=== PATIENT | male | born 1955 | race Caucasian/White ===

== ENCOUNTER 2017-07-15 09:40 | Inpatient (IN) ==
[2017-07-15] MEDS ORDERED: Ondansetron 4 MG/2 ML VIAL IVP ONE (10:19)
[2017-07-15] MEDS ORDERED: Pantoprazole 80 MG in 0.9 % Sodium Chloride 50 ML IVPB ONE (10:19)
[2017-07-15] MEDS ORDERED: 0.9 % Sodium Chloride 1,000 ML IVC ONE ×3 (10:19→14:25)
[2017-07-15] MEDS ORDERED: *HR* Morphine 2 MG/ML SYRINGE IVP ONE (10:25)
[2017-07-15 10:59] LABS: Basophils % 0.4 %; Eosinophils % 0.3 %; Hematocrit 42.5 % (37.5-50.1); Hemoglobin 14.4 g/dL (12.9-16.9); Immature Granulocytes % 0.2 % (0-4); Lymphocytes # 2.1 K/mcL (0.6-4.6); Mean Corpuscular HGB Conc 33.9 g/dL (31.6-35.5); Mean Corpuscular Hemoglobin 29.3 pg (28.0-33.3); Mean Corpuscular Volume 86.4 fL (83.0-100.0); Mean Platelet Volume 10.5 fL (9.4-12.4); Monocytes # 0.8 K/mcL (0.0-1.3); Monocytes % 8.6 %; Neutrophils # 6.5 K/mcL (1.6-8.9); Platelet Count 262 K/mcL (140-400); Red Blood Count 4.92 M/mcL (4.19-5.50); Segmented Neutrophils % 68.5 %
[2017-07-15 11:03] LABS: INR 1.1; Prothrombin Time 12.4 Seconds (9.4-12.1)
[2017-07-15 11:05] LABS: Activated Partial Thrombo Time 31.7 Seconds (26.0-36.0)
[2017-07-15 11:11] LABS: Alanine Aminotransferase 45 Units/L (0-55); Albumin/Globulin Ratio 0.9 (1.1-2.2); Alkaline Phosphatase 66 Units/L (38-126); Aspartate Amino Transferase 35 Units/L (5-34); BUN/Creatinine Ratio 43 (6-26); Blood Urea Nitrogen 41 mg/dL (8-26); Calcium 8.7 mg/dL (8.6-10.8); Carbon Dioxide 21 mEq/L (19-29); Chloride 106 mEq/L (98-109); Globulin 3.4 g/dL (2.4-3.5); Glucose 117 mg/dL (70-99); Magnesium 1.2 mg/dL (1.6-2.6); Osmolality,Calculated 299 (280-300); Potassium 4.3 mEq/L (3.5-4.5); Sodium 139 mEq/L (136-145); Total Protein 6.4 g/dL (6.0-8.3); eGFR For African Americans > 60 (> 60); eGFR For Non-African Americans > 60 (> 60)
--- NOTE | 2017-07-15 12:37 | Emergency Department Note ---
Disposition Clinical Impression: Lower gastrointestinal hemorrhage, Elevated troponin, Hematochezia Disposition: Admitted As Inpatient Condition: Fair Referrals: Brody Steel DO [Primary Care Provider] - Forms: ED Satisfaction Letter Time of Disposition: 12:44 GI Bleed HPI - General Chief complaint: ED GI Bleed Stated complaint: blood in stool Time Seen by Provider: 07/15/17 09:44 Source: patient, EMS Mode of arrival: ambulatory Limitations: no limitations Nursing Notes Reviewed: Yes Vital Signs Reviewed: Yes - History of Present Illness HPI Narrative: Patient is a 62-year-old male with a past medical history of hypertension that presents to the ED with chief complaint rectal bleeding and vomiting blood. Pt this morning he go up around 1 AM he got up to use the bathroom and noticed his stool was dark. He states he did not think much about it and went back to bed. States he then got up this morning and he felt like his stomach was bloated. Patient then went to the bathroom and had bright red diarrhea. Patient then goes on to state he became very nauseated and started vomiting dark black blood. He denies any chest pain, shortness of breath, abdominal pain, back pain , urinary symptoms or weakness. Does report he has a little lightheaded. Patient is not on any blood thinners. He denies any use of NSAIDs or alcohol. Does report recent fall, states mechanical fall (tripped) while hunting yesterday but didn't land on his stomach. 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 Denies: abdominal pain, epistaxis, fever, chills, headaches, loss of appetite, malaise, easy bruising, rash, other bleeding source, shortness of breath, syncope/near-syncope, weakness Treatments Prior to Arrival: none - Related Data Home Medications Medication Instructions Recorded Confirmed Aspirin [Lo-Dose Aspirin EC] 81 mg PO DAILY 07/15/17 07/15/17 Atorvastatin [Lipitor] 40 mg PO HS 07/15/17 07/15/17 Carvedilol [Coreg] 6.25 mg PO BID 07/15/17 07/15/17 Oxycodone HCl/Acetaminophen 1 tab PO QID 07/15/17 07/15/17 [Percocet 10-325 mg Tablet] hydroCHLOROthiazide 50 mg PO DAILY 07/15/17 07/15/17 [Hydrochlorothiazide] Allergies Allergy/AdvReac Type Severity Reaction Status Date / Time No Known Allergies Allergy Verified 07/15/17 12:15 All systems ED: reviewed and negative except as stated. Review of Systems: As Per HPI Constitutional: Denies: fever, chills, weakness Eyes: Denies: eye discharge ENT ED: Denies: ear pain, throat pain, dental pain, congestion Cardiovascular: Denies: chest pain, palpitations, dyspnea on exertion Respiratory: Denies: cough, dyspnea, wheezes, hemoptysis, stridor, sputum production Gastrointestinal: Reports: nausea, vomiting, hematemesis, hematochezia. Denies : abdominal pain Genitourinary: Denies: urgency, dysuria, frequency, hematuria Musculoskeletal: Denies: back pain, neck pain Integumentary: Denies: rash Neurological: Denies: weakness, numbness, paresthesias Past Medical History - Past Medical History Source: patient Medical history: Reports: hypertension Psychiatric history: Reports: no psych history - Social History Smoking Status: Former smoker Smokeless Tobacco Status: No Alcohol use: Reports: occasionally Drug use: Reports: none Physical Exam - General Limitations: no limitations General appearance: alert, in no apparent distress - Head Head exam: atraumatic, normocephalic, normal inspection - Eye Eye exam: Present: normal appearance, PERRL, EOMI - ENT ENT exam: normal exam, normal oropharynx, mucous membranes moist - Neck Neck exam: Present: normal inspection, full ROM, trachea midline - Chest Chest inspection: Present: symmetric chest wall rise - Respiratory Respiratory exam: Present: normal lung sounds bilaterally - Cardiovascular Cardiovascular exam: Present: regular rate, normal rhythm, normal heart sounds - Abdominal Exam Abdominal exam: Present: soft, Non-Tender. Absent: tenderness, distention, guarding, rebound, rigidity - Rectal Exam Rectal exam: Present: normal inspection, normal rectal tone, heme (+) stool, bloody stool - Extremities Exam Extremities exam: Present: normal inspection, full ROM. Absent: pedal edema - Back Exam Back exam: Present: normal inspection, full ROM. Absent: tenderness, CVA tenderness (R), CVA tenderness (L) - Neurological Exam Neurological exam: Present: alert, oriented X3 - Psychiatric Psychiatric exam: Present: normal affect, normal mood - Skin Skin exam: Present: warm, dry, intact, normal color. Absent: rash, cyanosis, diaphoresis Course Course Narrative: Patient is a 62-year-old male with a past medical history of hypertension that presents to the ED with chief complaint rectal bleeding and vomiting blood. Pt this morning he go up around 1 AM he got up to use the bathroom and noticed his stool was dark. He states he did not think much about it and went back to bed. States he then got up this morning and he felt like his stomach was bloated. Patient then went to the bathroom and had bright red diarrhea. Patient then goes on to state he became very nauseated and started vomiting dark black blood. He denies any chest pain, shortness of breath, abdominal pain, back pain , urinary symptoms or weakness. Does report he has a little lightheaded. Patient is not on any blood thinners. He denies any use of NSAIDs or alcohol. Does report recent fall, states mechanical fall (tripped) while hunting yesterday but didn't land on his stomach. 2 IVs placed. We will obtain labs and CT at this time. IV fluids started. Protonix given. Hemoglobin 14.4 BUN 40, mag 1.7, total bili 2, AST 35, troponin 0.04. Positive Hemoccult chest X-ray shows no acute cardiopulmonary abnormalities. CT: 1. No acute abnormality in the abdomen/pelvis. 2. Punctate nonobstructing right renal calculus. 3. Diverticulosis. 4. Diffuse bladder wall thickening either secondary to chronic bladder outlet obstruction versus sequelae of cystitis. Plan to admit. Endoscopy paged. Endoscopy never called back. Hospitalist paged. Discussed case with Dr. Bhatia. He accepted pt. No other request at this time. Dr. Alcantar had [id number] time with patient and agrees with my assessment and treatment plan. Vital Signs Temperature 98.0 F 07/15/17 09:43 Pulse Rate 126 07/15/17 09:43 Respiratory Rate 18 07/15/17 09:43 Blood Pressure 115/72 07/15/17 09:43 O2 Sat by Pulse Oximetry 95 07/15/17 09:43 Temperature 98.0 F 07/15/17 09:43 Pulse Rate 102 07/15/17 13:23 Respiratory Rate 22 07/15/17 13:23 Blood Pressure 104/80 07/15/17 13:23 O2 Sat by Pulse Oximetry 94 07/15/17 13:23 Oxygen Delivery Oxygen Delivery Room Air GI Bleed - Medical Records Medical records reviewed: Yes I reviewed the patient's medical records. - Lab Data Lab results reviewed: Yes I reviewed the patient's lab results. Result diagrams: 07/15/17 10:47 07/15/17 10:47 Lab Results 07/15/17 07/15/17 07/15/17 Range/Units 10:47 10:47 10:47 WBC 9.5 (4.3-11.1) K/mcL RBC 4.92 (4.19-5.50) M/mcL Hgb 14.4 (12.9-16.9) g/dL Hct 42.5 (37.5-50.1) % MCV 86.4 (83.0-100.0) fL MCH 29.3 (28.0-33.3) pg MCHC 33.9 (31.6-35.5) g/dL RDW 13.0 (11.5-14.5) % Plt Count 262 (140-400) K/mcL MPV 10.5 (9.4-12.4) fL Immature Gran % 0.2 (0-4) % Seg Neutrophils % 68.5 % Lymphocytes % 22.0 % Monocytes % 8.6 % Eosinophils % 0.3 % Basophils % 0.4 % Neutrophils # 6.5 (1.6-8.9) K/mcL Lymphocytes # 2.1 (0.6-4.6) K/mcL Monocytes # 0.8 (0.0-1.3) K/mcL Eosinophils # 0.0 (0.0-0.6) K/mcL Basophils # 0.0 (0.0-0.2) K/mcL PT 12.4 H (9.4-12.1) Seconds INR 1.1 APTT 31.7 (26.0-36.0) Seconds Sodium (136-145) mEq/L Potassium (3.5-4.5) mEq/L Chloride (98-109) mEq/L Carbon Dioxide (19-29) mEq/L BUN (8-26) mg/dL Creatinine (0.72-1.25) mg/dL Est GFR ( Amer) (> 60) Est GFR (Non-Af Amer) (> 60) BUN/Creatinine Ratio (6-26) Glucose (70-99) mg/dL Calculated Osmolality (280-300) Lactic Acid (0.5-2.2) mmol/L Calcium (8.6-10.8) mg/dL Magnesium (1.6-2.6) mg/dL Total Bilirubin (0.2-1.2) mg/dL AST (5-34) Units/L ALT (0-55) Units/L Alkaline Phosphatase (38-126) Units/L Troponin I (0-0.03) ng/mL Serum Total Protein (6.0-8.3) g/dL Albumin (3.5-5.0) g/dL Globulin (2.4-3.5) g/dL Albumin/Globulin Ratio (1.1-2.2) Stool Occult Blood (Negative) Blood Type O POSITIVE Antibody Screen NEGATIVE 07/15/17 07/15/17 07/15/17 Range/Units 10:47 10:47 10:47 WBC (4.3-11.1) K/mcL RBC (4.19-5.50) M/mcL Hgb (12.9-16.9) g/dL Hct (37.5-50.1) % MCV (83.0-100.0) fL MCH (28.0-33.3) pg MCHC (31.6-35.5) g/dL RDW (11.5-14.5) % Plt Count (140-400) K/mcL MPV (9.4-12.4) fL Immature Gran % (0-4) % Seg Neutrophils % % Lymphocytes % % Monocytes % % Eosinophils % % Basophils % % Neutrophils # (1.6-8.9) K/mcL Lymphocytes # (0.6-4.6) K/mcL Monocytes # (0.0-1.3) K/mcL Eosinophils # (0.0-0.6) K/mcL Basophils # (0.0-0.2) K/mcL PT (9.4-12.1) Seconds INR APTT (26.0-36.0) Seconds Sodium 139 (136-145) mEq/L Potassium 4.3 (3.5-4.5) mEq/L Chloride 106 (98-109) mEq/L Carbon Dioxide 21 (19-29) mEq/L BUN 41 H (8-26) mg/dL Creatinine 0.96 (0.72-1.25) mg/dL Est GFR ( Amer) > 60 (> 60) Est GFR (Non-Af Amer) > 60 (> 60) BUN/Creatinine Ratio 43 H (6-26) Glucose 117 H (70-99) mg/dL Calculated Osmolality 299 (280-300) Lactic Acid 1.6 (0.5-2.2) mmol/L Calcium 8.7 (8.6-10.8) mg/dL Magnesium 1.2 L (1.6-2.6) mg/dL Total Bilirubin 2.0 H (0.2-1.2) mg/dL AST 35 H (5-34) Units/L ALT 45 (0-55) Units/L Alkaline Phosphatase 66 (38-126) Units/L Troponin I (0-0.03) ng/mL Serum Total Protein 6.4 (6.0-8.3) g/dL Albumin 3.0 L (3.5-5.0) g/dL Globulin 3.4 (2.4-3.5) g/dL Albumin/Globulin Ratio 0.9 L (1.1-2.2) Stool Occult Blood Positive A (Negative) Blood Type Antibody Screen 07/15/17 Range/Units 10:47 WBC (4.3-11.1) K/mcL RBC (4.19-5.50) M/mcL Hgb (12.9-16.9) g/dL Hct (37.5-50.1) % MCV (83.0-100.0) fL MCH (28.0-33.3) pg MCHC (31.6-35.5) g/dL RDW (11.5-14.5) % Plt Count (140-400) K/mcL MPV (9.4-12.4) fL Immature Gran % (0-4) % Seg Neutrophils % % Lymphocytes % % Monocytes % % Eosinophils % % Basophils % % Neutrophils # (1.6-8.9) K/mcL Lymphocytes # (0.6-4.6) K/mcL Monocytes # (0.0-1.3) K/mcL Eosinophils # (0.0-0.6) K/mcL Basophils # (0.0-0.2) K/mcL PT (9.4-12.1) Seconds INR APTT (26.0-36.0) Seconds Sodium (136-145) mEq/L Potassium (3.5-4.5) mEq/L Chloride (98-109) mEq/L Carbon Dioxide (19-29) mEq/L BUN (8-26) mg/dL Creatinine (0.72-1.25) mg/dL Est GFR ( Amer) (> 60) Est GFR (Non-Af Amer) (> 60) BUN/Creatinine Ratio (6-26) Glucose (70-99) mg/dL Calculated Osmolality (280-300) Lactic Acid (0.5-2.2) mmol/L Calcium (8.6-10.8) mg/dL Magnesium (1.6-2.6) mg/dL Total Bilirubin (0.2-1.2) mg/dL AST (5-34) Units/L ALT (0-55) Units/L Alkaline Phosphatase (38-126) Units/L Troponin I 0.04 H* (0-0.03) ng/mL Serum Total Protein (6.0-8.3) g/dL Albumin (3.5-5.0) g/dL Globulin (2.4-3.5) g/dL Albumin/Globulin Ratio (1.1-2.2) Stool Occult Blood (Negative) Blood Type Antibody Screen - Radiology Data Radiology results reviewed: Yes I reviewed the patient's radiology results. Critical Care Time Critical Care Time: Yes Total Critical Care Time: 45 Attestation: Critical care performed: Time is exclusive of separately billable procedures. Time includes: direct patient care, patient reassessment, coordination of patient care, interpretation of data (laboratory data, radiology data, and respiratory data), review of patient's medical records, medical consultation and documentation of patient care. Procedures included in critical care time: Procedures excluded from critical care time: Attestation Statement - Attestation Attestation: Gigi Wagner DO have provided [id number] time during the care of this patient. Detailed review the presentation, symptoms, medical history were discussed and reviewed with the mid-level provider Nereida Alcantar PA-C, PA-C/[employer]. Medical intervention labs and imaging studies were reviewed in detail. See full documentation of physical exam and course of care in the mid-level provider 's note. I agree with the determined course of care, medical intervention and disposition put forth by the mid-level provider. See below documentation for changes or alterations in documentation. 62-year-old male presents to emergency room with complaint of abdominal pain. Patient fell yesterday while walking to his abdomen. He is currently 9 blood thinners. His main complaint for presentation is acute onset of abdominal pain causing him to have significant abdominal discomfort and irritation. Patient is not currently on any blood thinners. He also describes some hematemesis and hematochezia. Denies fevers chills nausea vomiting or diarrhea. Denies chest pain shortness of breath headache or vision change. Bedside rectal evaluation and occult testing was positive for acute blood. Labs were otherwise unremarkable stable hemoglobin. His bilirubin and liver function testing is slightly elevated. Patient has no point tenderness on examination at this time except for diffuse abdominal discomfort. CT imaging of the abdomen does not show any acute intra-abdominal pathology or signs of perforation. No signs of cholelithiasis or choledocholithiasis at this point. Patient had type and screen fluid protonic provided here in the emergency room. Consultation to on- call gastroenterology and hospitals were completed. Patient will be admitted for definitive management and evaluation. Blood pressure has been fluid responsive to the emergency room. See detailed documentation of the physical exam, medical intervention and medical decision making, consultations, critical care documented in the mid-level provider's note
[2017-07-15] MEDS ORDERED: Naloxone 0.4 MG/ML INJ IVP PRN (16:24)
[2017-07-15] MEDS ORDERED: 0.9 % Sodium Chloride 1,000 ML IVC SCH (16:30)
--- NOTE | 2017-07-15 16:40 | Internal Med History&Physical ---
Date of Encounter: 07/15/17 Time of Encounter: 16:34 Assessment and Plan (1) Lower gastrointestinal hemorrhage Current visit: Yes Status: Acute 62/male Background history of coronary artery disease, quadruple bypass 2 years back. Admitted with lower GI bleeding. Had a episode of hematemesis too. Patient is comfortably lying in the bed. Maintaining his blood pressure. CT abdomen pelvis: No acute abnormality in the abdomen/pelvis Plan: Admit as inpatient: This patient needs intravenous PPI drip/6 hourly hemoglobin monitoring/may need an emergency intervention if the GI bleed worsens. Intravenous pantoprazole 8 mg per hour. Nothing by mouth Intravenous normal saline 70 mL per hour. Gastroenterology consult. Spoke with Dr Sloan at length and explained about patient's presenting symptom. Likely EGD tomorrow. Home antihypertensive medication on hold in view of GI bleed. Pain control: Intravenous morphine 2 mg every 4 when necessary (2) Coronary artery disease Current visit: Yes Status: Acute Patient is a quadruple bypass 2 years back. Patient came with the GI bleed. First troponin is positive but that is likely secondary to demand ischemia. We will cycle her troponin. Plan: If the troponin starts trending up then please call cardiology. In view of the GI bleed at this point patient cannot start on any anticoagulant. Discussed with patient this issue. He verbalized understand Qualifiers: Coronary Disease-Associated Artery/Lesion type: mohegan artery [place] vs. transplanted heart: mohegan heart Associated angina: with stable angina Qualified Code(s): I25.118 - Atherosclerotic heart disease of mohegan coronary artery with other forms of angina pectoris (3) Hypomagnesemia Current visit: Yes Status: Acute Noted that patient's magnesium was 1.2. We will replace the magnesium. We will repeat the labs tomorrow morning. (4) Elevated troponin Current visit: Yes Status: Acute Elevated troponin likely secondary to demand ischemia as previously mentioned. We will trend the troponin. (5) DVT prophylaxis Current visit: Yes Status: Acute This patient is not a candidate for pharmacological DVT prophylaxis in view of the GI bleed. SCD Medical decision making: This patient has moderate to severe risk of worsening in spite of being on appropriate medication due to the underlying complex medical conditions/comorbidities. Internal Medicine - H&P: HPI Chief complaint: GI bleed Admitted From: Emergency Dept Plans for Post Hospital Care: Home History of present illness: Mr. Barron is a 62 year old male, on is known to have a hypertension, hyperlipidemia and has a stent placement more than 10 years back. Patient had a quadruple bypass 2 years back at [facility] in [facility]. Patient lives in [place] and he has a primary care physician from the same area. Patient noticed bright red blood passing per rectum yesterday evening and also noted that there was a black stools when he was wiping his backside. Patient had another episode of vomiting this morning and patient claims that he had seen little blood at the end of his vomitus. Patient denies chest pain, palpitation, nausea, abdominal pain, dizziness. In view of this persistent bleeding patient was concerned, he decided to come to the emergency room for further evaluation. Workup in the emergency room: Basic labs were drawn. Hemoglobin: 14.4, hematocrit: 42.5, INR 1.1, BUN: 41, creatinine: 0.96, magnesium: 1.2, troponin: 0.04, bilirubin: 2. Patient underwent CT scan of the abdomen. CT scan of the abdomen did not reveal any major pathology/findings suggestive of etiology for the gastrointestinal bleed. Patient's stool for occult blood is positive. Reason for hospitalization: GI bleed for further intervention. Family history: Noncontributory Past Med Surg Social Fam HX - Past Medical History Medical history: hypertension Psychiatric history: no psych history - Past Surgical History Surgical History: coronary bypass (CABG) - Social History Smoking Status: Former smoker Smokeless Tobacco Status: No Alcohol use: occasionally Drug use: none - Family History Mother Age: 34 Living Status: Age at : 34 Cause of : Heart attack Hx Family Cardiac Disorders: Yes Father History Unknown: Yes Age at : 77 Cause of : Colon cancer Hx Family Cancer: Yes (colon) Internal Medicine - H&P: Meds Aspirin [Lo-Dose Aspirin EC] 81 mg PO DAILY 07/15/17 [History] Atorvastatin [Lipitor] 40 mg PO HS 07/15/17 [History] Carvedilol [Coreg] 6.25 mg PO BID 07/15/17 [History] Oxycodone HCl/Acetaminophen [Percocet 10-325 mg Tablet] 1 tab PO QID 07/15/17 [ History] hydroCHLOROthiazide [Hydrochlorothiazide] 50 mg PO DAILY 12/04/17 [History] 3 Allergy/AdvReac Type Severity Reaction Status Date / Time No Known Allergies Allergy Verified 07/15/17 12:15 All Systems PM: A 10-system review of systems was performed and is negative for pertinent findings except as documented above in the HPI. - Constitutional Constitutional: no chills, no fever(s), no night sweats - EENT Eyes: no change in vision, no discharge, no pain, no photophobia Ears: no ear discharge, no ear pain, no tinnitus Nose, mouth and throat: no dysphagia, no nasal discharge, no neck pain, no sore throat - Cardiovascular Cardiovascular ROS IM: no chest pain, no diaphoresis, no dyspnea, no lightheadedness, no palpitations, no syncope - Respiratory Respiratory: no cough, no dyspnea, no wheezing, no excessive phlegm production - Gastrointestinal Gastrointestinal: abdominal pain, diarrhea, hematemesis, hematochezia, melena, vomiting, no nausea - Musculoskeletal Musculoskeletal ROS IM: no numbness, no tingling - Integumentary Integumentary IM: no rash, no unusual bruising - Neurological Neurological ROS: no confusion, no convulsions, no focal weakness, no numbness, no tingling, no tremor(s) - Hematologic/Lymphatic Hematologic/Lymphatic: no easy bruising - Constitutional Vitals: Temp Pulse Resp BP Pulse Ox 99 F 94 16 135/108 99 07/15/17 15:49 07/15/17 15:49 07/15/17 15:49 07/15/17 15:49 07/15/17 15:49 General appearance: Present: A&O X 3, morbidly obese, pleasant, no acute distress, answers questions appropriately - Head Head exam: Present: atraumatic, normocephalic - Eye Eye exam: Present: PERRL, conjuntiva pink, sclera anicteric Pupils: Present: PERRL - Neck Neck exam general surgery: Present: supple, trachea midline. Absent: lymphadenopathy - Respiratory Respiratory exam: Present: CTAB. Absent: accessory muscle use, rales, rhonchi, wheezes - Cardiovascular Cardiovascular exam: Present: RRR, +S1, +S2. Absent: diastolic murmur, gallop, rubs, systolic murmur - GI/Abdominal GI/Abdominal exam: Present: normal bowel sounds, soft, no peritoneal signs. Absent: distended, tenderness - Extremities Exam Extremities exam: Present: warm, radial pulses palpable and symmetrical. Absent : calf tenderness, cyanotic, pedal edema - Neurological Exam Neurological exam: Present: CN II-XII intact, oriented X3, no focal deficits. Absent: pronater drift, facial droop, speech deficit - Skin Skin exam: Present: dry, intact Internal Med - H&P Results - Labs CBC & Chem 7: 07/15/17 10:47 07/15/17 10:47 Labs: Results discussed with the emergency room physician.
[2017-07-15] MEDS ORDERED: Octreotide 50 MCG/ML SYRINGE IVP ONE (17:22)
[2017-07-15 17:26] LABS: Basophils % 0.3 %; Eosinophils % 0.1 %; Hematocrit 35.3 % (37.5-50.1); Immature Granulocytes % 0.3 % (0-4); Lymphocytes # 2.6 K/mcL (0.6-4.6); Lymphocytes % 33.5 %; Mean Corpuscular HGB Conc 33.7 g/dL (31.6-35.5); Mean Corpuscular Hemoglobin 29.5 pg (28.0-33.3); Mean Corpuscular Volume 87.4 fL (83.0-100.0); Mean Platelet Volume 10.7 fL (9.4-12.4); Monocytes # 0.7 K/mcL (0.0-1.3); Monocytes % 8.4 %; Neutrophils # 4.4 K/mcL (1.6-8.9); Platelet Count 194 K/mcL (140-400); Red Blood Count 4.04 M/mcL (4.19-5.50); Red Cell Distribution Width 13.2 % (11.5-14.5); Segmented Neutrophils % 57.4 %
[2017-07-15 18:08] LABS: Hemoglobin 11.9 g/dL (12.9-16.9)
[2017-07-15] MEDS: 0.9 % Sodium Chloride 1,000 ML IVC SCH ×2 (18:30→23:40)
[2017-07-15] MEDS: Octreotide 400 MCG in 0.9 % Sodium Chloride 100 ML IVC SCH (18:44)
[2017-07-15] MEDS: Pantoprazole 80 MG in 0.9 % Sodium Chloride 250 ML IVC SCH (22:19)
[2017-07-15 22:41] LABS: Basophils % 0.2 %; Eosinophils % 0.3 %; Hematocrit 32.9 % (37.5-50.1); Immature Granulocytes % 0.2 % (0-4); Lymphocytes % 43.1 %; Mean Corpuscular HGB Conc 33.4 g/dL (31.6-35.5); Mean Corpuscular Hemoglobin 29.4 pg (28.0-33.3); Mean Platelet Volume 10.3 fL (9.4-12.4); Monocytes # 0.8 K/mcL (0.0-1.3); Monocytes % 8.9 %; Neutrophils # 4.4 K/mcL (1.6-8.9); Platelet Count 224 K/mcL (140-400); Red Blood Count 3.74 M/mcL (4.19-5.50); Red Cell Distribution Width 13.2 % (11.5-14.5); Segmented Neutrophils % 47.3 %
[2017-07-16] MEDS: *HR* Morphine 2 MG/ML SYRINGE IVP PRN ×2 (00:14→04:52)
[2017-07-16] MEDS: Octreotide 400 MCG in 0.9 % Sodium Chloride 100 ML IVC SCH (02:37)
[2017-07-16 05:38] LABS: Basophils % 0.4 %; Eosinophils % 0.5 %; Hematocrit 31.3 % (37.5-50.1); Hemoglobin 10.3 g/dL (12.9-16.9); Immature Granulocytes % 0.3 % (0-4); Lymphocytes # 2.5 K/mcL (0.6-4.6); Mean Corpuscular HGB Conc 32.9 g/dL (31.6-35.5); Mean Corpuscular Volume 88.2 fL (83.0-100.0); Mean Platelet Volume 10.3 fL (9.4-12.4); Monocytes # 0.7 K/mcL (0.0-1.3); Monocytes % 8.8 %; Neutrophils # 4.3 K/mcL (1.6-8.9); Platelet Count 182 K/mcL (140-400); Red Blood Count 3.55 M/mcL (4.19-5.50); Red Cell Distribution Width 13.3 % (11.5-14.5)
[2017-07-16 05:59] LABS: Alanine Aminotransferase 35 Units/L (0-55); Albumin 2.6 g/dL (3.5-5.0); Albumin/Globulin Ratio 1.1 (1.1-2.2); Alkaline Phosphatase 45 Units/L (38-126); Aspartate Amino Transferase 29 Units/L (5-34); BUN/Creatinine Ratio 37 (6-26); Bilirubin,Total 1.9 mg/dL (0.2-1.2); Blood Urea Nitrogen 33 mg/dL (8-26); Carbon Dioxide 22 mEq/L (19-29); Chloride 110 mEq/L (98-109); Globulin 2.3 g/dL (2.4-3.5); Glucose 151 mg/dL (70-99); Magnesium 1.4 mg/dL (1.6-2.6); Osmolality,Calculated 300 (280-300); Phosphorous 2.6 mg/dL (2.3-4.7); Potassium 4.2 mEq/L (3.5-4.5); Sodium 140 mEq/L (136-145); eGFR For African Americans > 60 (> 60); eGFR For Non-African Americans > 60 (> 60)
[2017-07-16 06:01] LABS: Calcium 7.3 mg/dL (8.6-10.8); Total Protein 4.9 g/dL (6.0-8.3)
[2017-07-16 06:02] LABS: INR 1.2; Prothrombin Time 12.7 Seconds (9.4-12.1)
[2017-07-16 06:44] LABS: Activated Partial Thrombo Time 30.4 Seconds (26.0-36.0)
[2017-07-16] MEDS ORDERED: Lidocaine -MPF 4% 5 ML AMPUL ONE (07:35)
[2017-07-16] MEDS ORDERED: *HR* Etomidate 40 MG/20 ML VIAL IVP ONE (07:35)
[2017-07-16] MEDS ORDERED: Lidocaine -MPF 2% 2 ML VIAL ONE (07:35)
--- NOTE | 2017-07-16 07:36 | Anesthesia Evaluation PreOp ---
Date of Encounter: 07/16/17 Time of Encounter: 07:30 - Past History Planned Operation: EGD Cardiac History: HTN, Hyperlipidemia, Cardiac Surgery (CABG X4 2015) Pulmonary History: Former smoker MAGNETIZER History: Denies Any Significant HX Other Medical History: Denies Any Significant HX Anesthesia History: No Prior Anesthetic Complications Alcohol Use: occasionally Drug use: none Medications and Allergies Aspirin [Lo-Dose Aspirin EC] 81 mg PO DAILY 07/15/17 [History] Atorvastatin [Lipitor] 40 mg PO HS 07/15/17 [History] Carvedilol [Coreg] 6.25 mg PO BID 07/15/17 [History] Oxycodone HCl/Acetaminophen [Percocet 10-325 mg Tablet] 1 tab PO QID 07/15/17 [ History] hydroCHLOROthiazide [Hydrochlorothiazide] 50 mg PO DAILY 07/15/17 [History] 3 Allergy/AdvReac Type Severity Reaction Status Date / Time No Known Allergies Allergy Verified 07/15/17 12:15 - Meds/Allergy Pre-op Review Medications Reviewed: Yes Allergies Reviewed: Yes Beta Blockers on Current Med List: No Anesthesia Results - Labs 07/16/17 05:14 07/16/17 05:14 Anesthesia Exam O2 Sat Height 1.73 m Height 1.73 m Weight 118.3 kg Weight 121 kg Weight 113.398 kg O2 Sat by Pulse Oximetry 99 O2 Sat by Pulse Oximetry 99 O2 Sat by Pulse Oximetry 99 O2 Sat by Pulse Oximetry 96 O2 Sat by Pulse Oximetry 97 O2 Sat by Pulse Oximetry 99 O2 Sat by Pulse Oximetry 95 O2 Sat by Pulse Oximetry 94 O2 Sat by Pulse Oximetry 95 O2 Sat by Pulse Oximetry 95 Vital Signs Temp Pulse Resp BP Pulse Ox 98.0 F 126 18 115/72 95 07/15/17 09:43 07/15/17 09:43 07/15/17 09:43 07/15/17 09:43 07/15/17 09:43 Height: 5'8 Weight: 260 lbs NPO (# of Hours): MN Pain Scale: 1 - HEENT Pupil (Motor): Pupils equal, EOMI Mallampati: III Oral Opening: Less than or equal to 3 - MAGNETIZER LOC: Oriented MAGNETIZER Motor: Normal RUE, Normal LUE, Normal RLE, Normal LLE, Normal Face MAGNETIZER Sensory: Normal: RUE, LUE, RLE, LLE, Face - Cardiac Rhythm: Regular Murmur: None JVD: No Carotid Bruit: No - Pulmonary Breath Sounds: bilateral Clear Respiratory Effort: Symmetrical Anesthesia Assess/Plan ASA Score: 3 (CAD HTN Obesity), E Modified [place] Scale for Level of Consciousness: Cooperative, oriented, and tranquil Anesthetic Plan: General Monitoring Plan: Standard Monitors Recovery Plan: PACU (Discussed GA, agrees to proceed)
--- NOTE | 2017-07-16 07:42 | Electrocardiograph Report ---
[place] [facility] Test Date: 2017-07-15 Pat Name: Timmy Barron Department: 103 Room: 2N11 Gender: M [employer]ice: : 1955 Requested By: Nereida Villanueva Order Number: [id number] Reading MD: Ade Rahman DO Measurements Intervals [place] Rate: 125 P: 44 KS: 150 QRS: 45 QRSD: 88 T: 16 QT: 290 QTc: 364 Interpretive Statements SINUS TACHYCARDIA POSSIBLE INFERIOR MYOCARDIAL INFARCTION [30 ms Q WAVE IN II/aVF], PROBABLY OLD ABNORMAL RHYTHM ECG Electronically Signed On 07-16-2017 7:40:53 EST by Ade Rahman DO
[2017-07-16] MEDS ORDERED: *HR* Succinylcholine 200 MG/10 ML VIAL IVP ONE (07:45)
[2017-07-16] MEDS ORDERED: Tetracaine/Benzocaine/Butamben 200MG/SPRAY (100SPY/BOT) MM ONE (08:14)
[2017-07-16] MEDS ORDERED: *HR* Propofol 200 MG/20 ML VIAL IVP ONE (08:15)
[2017-07-16] MEDS ORDERED: Polyethylene Glycol 3350 255 GM POWDER PO ONE (10:01)
[2017-07-16] MEDS ORDERED: Polyethylene Glycol 3350 255 GM POWDER PO PRN (10:01)
[2017-07-16] MEDS ORDERED: SODIUM CHLORIDE/NAHCO3/KCL/PEG 4,000 ML SOLN.RECON PO ONE (10:01)
[2017-07-16] MEDS: Pantoprazole 80 MG in 0.9 % Sodium Chloride 250 ML IVC SCH (10:09)
--- NOTE | 2017-07-16 10:30 | Internal Med Progress Note ---
<Kathleen Sagastume - Last Filed: 07/16/17 10:54> Date of Encounter: 07/16/17 Time of Encounter: 10:27 - Assessment and plan (1) Hematochezia Current Visit: Yes Status: Acute Assessment and plan: Patient with history of bright red blood per rectum also with history of darker red blood per rectum. Sharan called in ER was positive. G.I. following. Patient initially placed on IV Protonix and octreotide trip, these have since been discontinued. EGT significant for Mcclendon's esophagus, diffuse inflammation with evidence of edema of the stomach and multiple localized less than 5 mm erosions with no stigmata of bleeding and no evidence of active bleeding. Will place patient on per tonics 40 mg BID secondary to his Mcclendon's esophagus. Patient has received one unit of packed red blood cell. Hemoglobin is 10.3. Continue to monitor every 6 hours. Patient is hemodynamically stable. Per gastroenterology recommendations, patient is on clear liquid diet today. Will undergo bowel prep for colonoscopy tomorrow. Unclear source of bright red blood per rectum at this time, likely is coming from a lower G.I. sources no upper G.I. source has been found. (2) Diverticular disease of large intestine Current Visit: Yes Status: Acute Assessment and plan: CT of abdomen and pelvis [address] with evidence of diverticular disease of large intestine without evidence of diverticulitis. Patient to undergo colonoscopy tomorrow with gastroenterology as diverticular bleed could possibly be source of bright red blood per rectum. (3) Elevated troponin Current Visit: Yes Status: Acute Assessment and plan: Patient initially had slightly elevated troponin of 0.04 on arrival. EKG with no acute changes. No elevation of BNP. Troponin's were trended and remained stable at 0.0442 occurrences for turning down to 0.02. Will not turn troponin's any further. No evidence for acute cardiovascular event. Due to patients G.I. bleed on arrival, he was not considered a candidate for heparin drip. (4) Hypomagnesemia Current Visit: Yes Status: Acute Assessment and plan: Patient with magnesium of 1.2 on mission, has received 2 g of IV magnesium. Repeat magnesium today is 1.4 will give patient take another 2 g of IV magnesium. Will recheck magnesium level in morning. - Subjective Interval history: Patient presented with a history of bright red blood per rectum along with some melena. He was placed on a Protonix and octreotide tripped and admitted for possible G.I. bleed. He has received one unit of red blood cells during this admission. G.I. was consulted. This morning patient states that he has already had his EGD with gastroenterology. Review of the endoscopy reports indicates that there were evidence of Mcclendon's esophagus as well as evidence of inflammation with evidence of small ulcerations with no stick monitor active bleeding. There were no varices noted on the EGD. Patient is currently on a clear liquid diet with plans for colonoscopy tomorrow. He states he is still having both bright red blood as well as dark stool per rectum. He reports that after he has a bowel movement he has diffuse a lower abdominal pain encompassing both sides. He does not have any pain between bowel movements. He denies ever having any episodes like this previously. He has no other concerns or complaints at this time. - Constitutional Vitals: Temp Pulse Resp BP Pulse Ox 97.4 F L 96 18 135/91 99 07/16/17 07:33 07/16/17 07:45 07/16/17 07:33 07/16/17 07:33 07/16/17 07:33 General appearance: Present: A&O X 3, morbidly obese, pleasant, no acute distress, answers questions appropriately - Head Head exam: Present: atraumatic, normocephalic - Respiratory Respiratory exam: Present: CTAB. Absent: rhonchi, stridor, wheezes - Cardiovascular Cardiovascular exam: Present: RRR, +S1, +S2. Absent: diastolic murmur, systolic murmur - GI/Abdominal GI/Abdominal exam: Present: normal bowel sounds, soft. Absent: firm, guarding, rebound, tenderness - Extremities Exam Extremities exam: Present: normal capillary refill. Absent: pedal edema - Skin Skin exam: Present: dry, intact, warm Internal Medicine: Result - Labs CBC & Chem 7: 07/16/17 10:08 07/16/17 05:14 Labs: Short CBC 07/15/17 07/15/17 07/16/17 Range/Units 16:48 22:23 05:14 WBC 7.7 9.2 7.5 (4.3-11.1) K/mcL Hgb 11.9 L D 11.0 L 10.3 L (12.9-16.9) g/dL Hct 35.3 L 32.9 L 31.3 L (37.5-50.1) % Plt Count 194 224 182 (140-400) K/mcL Neutrophils # 4.4 4.4 4.3 (1.6-8.9) K/mcL BMP 07/16/17 05:14 Sodium 140 Potassium 4.2 Chloride 110 H Carbon Dioxide 22 BUN 33 H Creatinine 0.89 Glucose 151 H Calcium 7.3 L D Cardiac Enzymes 07/15/17 07/15/17 07/16/17 Range/Units 16:48 22:23 05:14 Troponin I 0.04 H* 0.04 H* 0.02 (0-0.03) ng/mL Liver Function 07/16/17 Range/Units 05:14 Total Bilirubin 1.9 H (0.2-1.2) mg/dL AST 29 (5-34) Units/L ALT 35 (0-55) Units/L Alkaline Phosphatase 45 (38-126) Units/L Albumin 2.6 L (3.5-5.0) g/dL - ABG Interpretation ABG results: PT/INR, D-dimer PT 12.7 Seconds (9.4-12.1) H 07/16/17 05:14 Consult Discharge Plan - Plan Referrals: Stefany Worrell [Other] - 07/26/17 11:30 am (This Dr. Joesph GUAN) <Jeison Jerez - Last Filed: 07/16/17 18:50> Date of Encounter: 07/16/17 - Assessment and plan (1) Hematochezia Current Visit: Yes Status: Acute (2) Coronary artery disease Current Visit: Yes Status: Acute Qualifiers: Coronary Disease-Associated Artery/Lesion type: [place] artery [place] vs. transplanted heart: [place] heart Associated angina: with stable angina Qualified Code(s): I25.118 - Atherosclerotic heart disease of [place] coronary artery with other forms of angina pectoris (3) Hypomagnesemia Current Visit: Yes Status: Acute (4) Diverticular disease of large intestine Current Visit: Yes Status: Chronic (5) Mcclendon esophagus Current Visit: Yes Status: Acute Qualifiers: Mcclendon's esophagus type: without dysplasia Qualified Code(s): K22.70 - Mcclendon's esophagus without dysplasia (6) Gastritis Current Visit: Yes Status: Acute Qualifiers: Gastritis type: other gastritis Chronicity: acute Gastritis bleeding: without bleeding Qualified Code(s): K29.00 - Acute gastritis without bleeding - Constitutional Vitals: Temp Pulse Resp BP Pulse Ox 97.6 F 88 14 134/84 100 07/16/17 18:38 07/16/17 18:38 07/16/17 18:38 07/16/17 18:38 07/16/17 18:38 Internal Medicine: Result - Labs CBC & Chem 7: 07/16/17 10:08 07/16/17 05:14 Labs: Short CBC 07/15/17 07/16/17 07/16/17 Range/Units 22:23 05:14 10:08 WBC 9.2 7.5 6.9 (4.3-11.1) K/mcL Hgb 11.0 L 10.3 L 9.9 L (12.9-16.9) g/dL Hct 32.9 L 31.3 L 28.9 L (37.5-50.1) % Plt Count 224 182 159 (140-400) K/mcL Neutrophils # 4.4 4.3 4.0 (1.6-8.9) K/mcL BMP 07/16/17 05:14 Sodium 140 Potassium 4.2 Chloride 110 H Carbon Dioxide 22 BUN 33 H Creatinine 0.89 Glucose 151 H Calcium 7.3 L D Cardiac Enzymes 07/15/17 07/16/17 Range/Units 22:23 05:14 Troponin I 0.04 H* 0.02 (0-0.03) ng/mL Liver Function 07/16/17 07/16/17 Range/Units 05:14 10:31 Total Bilirubin 1.9 H 1.2 (0.2-1.2) mg/dL Direct Bilirubin 0.6 H (0.0-0.5) mg/dL AST 29 28 (5-34) Units/L ALT 35 36 (0-55) Units/L Alkaline Phosphatase 45 43 (38-126) Units/L Albumin 2.6 L 2.7 L (3.5-5.0) g/dL - ABG Interpretation ABG results: PT/INR, D-dimer PT 12.7 Seconds (9.4-12.1) H 07/16/17 05:14 - Attending Attestation I examined this patient and my medical decision-making was reviewed with the Resident Physician on 07/16/17. I agree with the documented findings, disposition and treatment plan as described except to the extent set forth below. Mr Barron is currently admitted for acute GI bleed. He is s/p EGD today and to have colonoscopy tomorrow. He remains moderate to high risk due to potential for worsening clinical status. Mr Barron has just returned from EGD. He had Barretts and gastritis. No fever or chills. No further bleeding right now. Exam Alert. Comfortable Mucus membranes dry Heart reg No wheeze Abd soft and nontender No edema I/P 1. GI bleed - colonoscopy tomorrow 2. Gastritis. Further diagnoses and plan as above.
--- NOTE | 2017-07-16 10:34 | Gastroenterology Consult Note ---
<Fifi Martinez - Last Filed: 07/16/17 10:32> Date of Encounter: 07/16/17 Time of Encounter: 09:10 - Assessment and plan (1) GI bleeding Current Visit: Yes Status: Acute Assessment and plan: Pt presents with dark red stool and bright red rectal bleeding. He is status post EGD this morning. Will schedule for colonoscopy tomorrow. Hgb dropped from 14-10. Pt has continued tarry stools. Qualifiers: GI bleed type/associated pathology: melena Qualified Code(s): K92.1 - Melena (2) Family history of colon cancer in father Current Visit: Yes Status: Acute Assessment and plan: Last colonoscopy ~ 10 years ago, colonoscopy tomorrow. (3) Abnormal LFTs (liver function tests) Current Visit: Yes Status: Acute Assessment and plan: T bili elevated, will check hepatic panel. (4) Coronary artery disease Current Visit: Yes Status: Acute Assessment and plan: Toponin slightly elevated on admission may be due to demand ischemia, serial labs normal. Pt is on asa at home, has a history of CABG and stents. Qualifiers: Coronary Disease-Associated Artery/Lesion type: [place] artery [place] vs. transplanted heart: [place] heart Associated angina: with stable angina Qualified Code(s): I25.118 - Atherosclerotic heart disease of [place] coronary artery with other forms of angina pectoris - Time Spent With Patient Total time spent is greater than 50% in coordination of care (as documented) at patient's floor/unit and/or counseling patient: GI History of Present Illness - Data of Consult Patient: new to practice Consult date: 07/16/17 Requesting Physician: Jeison Jerez DO - Consult Narrative Reason for consult: gi bleed History of present illness: Mr. Barron is a 62 year old male, who has a pmhx of hypertension, hyperlipidemia and CAD. He has a history of coronary stents 10 years ago and CABG 2 years ago at [facility] in [facility]. He presents complaining of dark tarry stools mixed with bright red blood per rectum and bright red bleeding with wiping. He also complains of some abdominal pain with defecation. He denies fever at home. He denies ETOH, IVDU. He also had nausea and vomiting with small amount of bright red blood noted in vomitus. Hemoglobin was14.4 but dropped to 10.3 this am, INR 1.2, AST 29, ALT 35, t. bili 1.9, Troponin I was 0.04 dropped to 0.02. Stool was positive for occult blood. CT scan of the abdomen did not reveal any major pathology/findings suggestive of etiology for the gastrointestinal bleed. Patient's stool for occult blood is positive. COLON: ~10 years ago (unsure of where or results) EGD: ~ 10 years ago NSAIDS/ASA: ASA 81 mg ANTICOAGULANTS: denies Past Med Surg Social Fam HX - Past Medical History Medical history: hypertension Psychiatric history: no psych history - Past Surgical History Surgical History: coronary bypass (CABG) - Social History Smoking Status: Former smoker Smokeless Tobacco Status: No Alcohol use: occasionally Drug use: none - Family History Mother Age: 34 Living Status: Age at : 34 Cause of : Heart attack Hx Family Cardiac Disorders: Yes Father History Unknown: Yes Age at : 77 Cause of : Colon cancer Hx Family Cancer: Yes (colon) Review of Systems: GI: as per [place] GENERAL: denies fever, or chills EYES: denies yellow discoloration ENT: denies pain with swallowing or difficulty swallowing CARDIO: denies chest pain, palpitations RESP: Shortness of breath with exertion : denies change in color of urine NEURO: denies any weakness HEME: Denies any bruising MS: denies joint pain, joint swelling or back pain. DERM: denies rash or itching PSYCH: Denies history of anxiety or depression - Constitutional Vitals: Temp Pulse Resp BP Pulse Ox 97.4 F L 96 18 135/91 99 07/16/17 07:33 07/16/17 07:45 07/16/17 07:33 07/16/17 07:33 07/16/17 07:33 Exam: CONSTITUTIONAL:~alert, no acute distress.~HEAD:~normocephalic.~EYES:~no jaundice.~NECK:~no obvious swelling.~HEART:~regular rate and rhythm, no murmurs. ~LUNGS:~diminished air exchange bilaterally~ABDOMEN:~non distended, soft, tender to left upper and lower quadrants, no masses pulpable, no organomegaly.~ RECTAL EXAM:~Deferred.~EXTREMITIES:~no clubbing, cyanosis or edema.~SKIN:~no stigmata of chronic liver disease.~NEUROLOGIC:~no obvious focal defect.~~~~ Results - Labs CBC & Chem 7: 07/16/17 05:14 07/16/17 05:14 Labs: Last Result Calcium 7.3 mg/dL (8.6-10.8) L D 07/16/17 05:14 Troponin I 0.02 ng/mL (0-0.03) 07/16/17 05:14 Stool Occult Blood Positive (Negative) A 07/15/17 10:47 Entire Visit Hgb 10.3 g/dL (12.9-16.9) L 07/16/17 05:14 Hct 31.3 % (37.5-50.1) L 07/16/17 05:14 PT 12.7 Seconds (9.4-12.1) H 07/16/17 05:14 Total Bilirubin 1.9 mg/dL (0.2-1.2) H 07/16/17 05:14 AST 29 Units/L (5-34) 07/16/17 05:14 ALT 35 Units/L (0-55) 07/16/17 05:14 - ABG ABG results: PT/INR, D-dimer PT 12.7 Seconds (9.4-12.1) H 07/16/17 05:14 Consult Discharge Plan - Plan Referrals: Stefany Worrell [Other] - 07/26/17 11:30 am (This Dr. Pink PA) <Kaz Sloan - Last Filed: 07/17/17 12:53> Date of Encounter: 07/16/17 - Time Spent With Patient Total time spent is greater than 50% in coordination of care (as documented) at patient's floor/unit and/or counseling patient: GI History of Present Illness - Data of Consult Requesting Physician: Jeison Jerez DO - Consult Narrative History of present illness: Mr. Barron is a 62 year old male - Constitutional Vitals: Temp Pulse Resp BP Pulse Ox 97.7 F 87 16 135/78 93 07/17/17 09:05 07/17/17 09:05 07/17/17 09:05 07/17/17 09:05 07/17/17 09:05 Results - Labs CBC & Chem 7: 07/17/17 12:31 07/17/17 04:18 Labs: Last Result Calcium 7.5 mg/dL (8.6-10.8) L 07/17/17 04:18 Troponin I 0.02 ng/mL (0-0.03) 07/16/17 05:14 Stool Occult Blood Positive (Negative) A 07/15/17 10:47 Entire Visit Hgb 8.3 g/dL (12.9-16.9) L 07/17/17 12:31 Hct 24.4 % (37.5-50.1) L 07/17/17 12:31 PT 12.7 Seconds (9.4-12.1) H 07/16/17 05:14 Total Bilirubin 1.2 mg/dL (0.2-1.2) 07/16/17 10:31 AST 28 Units/L (5-34) 07/16/17 10:31 ALT 36 Units/L (0-55) 07/16/17 10:31 - ABG ABG results: PT/INR, D-dimer PT 12.7 Seconds (9.4-12.1) H 07/16/17 05:14 - Attending Attestation Patient with chronic hepatitis C presents with melena and hemetemesis. Transferred to Step Down/ICU for close monitoring as he was actively bleeding. Plan EGD today and colonoscopy tomorrow. I examined this patient and my medical decision-making was reviewed with the Resident Physician. I agree with the documented findings, disposition and treatment plan as described except to the extent set forth below.
[2017-07-16 10:36] LABS: Basophils % 0.3 %; Eosinophils # 0.1 K/mcL (0.0-0.6); Hematocrit 28.9 % (37.5-50.1); Hemoglobin 9.9 g/dL (12.9-16.9); Immature Granulocytes % 0.6 % (0-4); Lymphocytes # 2.2 K/mcL (0.6-4.6); Lymphocytes % 32.1 %; Mean Corpuscular HGB Conc 34.3 g/dL (31.6-35.5); Mean Corpuscular Hemoglobin 29.6 pg (28.0-33.3); Mean Corpuscular Volume 86.5 fL (83.0-100.0); Mean Platelet Volume 10.9 fL (9.4-12.4); Monocytes # 0.6 K/mcL (0.0-1.3); Monocytes % 9.1 %; Nucleated Red Blood Cells 0.3 /100 WBC (0); Platelet Count 159 K/mcL (140-400); Red Blood Count 3.34 M/mcL (4.19-5.50); Red Cell Distribution Width 13.6 % (11.5-14.5); Segmented Neutrophils % 56.9 %
[2017-07-16 11:13] LABS: Albumin 2.7 g/dL (3.5-5.0); Albumin/Globulin Ratio 1.4 (1.1-2.2); Bilirubin,Direct 0.6 mg/dL (0.0-0.5); Bilirubin,Indirect 0.6 mg/dL (0.0-1.2); Bilirubin,Total 1.2 mg/dL (0.2-1.2); Globulin 1.9 g/dL (2.4-3.5); Total Protein 4.6 g/dL (6.0-8.3)
[2017-07-17] MEDS: Octreotide 400 MCG in 0.9 % Sodium Chloride 100 ML IVC SCH (00:17)
[2017-07-17] MEDS: Pantoprazole 40 MG in 0.9 % Sodium Chloride Mini Bag 100 ML IVC SCH (00:18)
[2017-07-17 04:49] LABS: Basophils % 0.2 %; Eosinophils # 0.2 K/mcL (0.0-0.6); Eosinophils % 3.6 %; Hematocrit 23.6 % (37.5-50.1); Immature Granulocytes % 0.2 % (0-4); Lymphocytes # 1.9 K/mcL (0.6-4.6); Lymphocytes % 34.2 %; Mean Corpuscular HGB Conc 33.5 g/dL (31.6-35.5); Mean Corpuscular Hemoglobin 29.5 pg (28.0-33.3); Mean Corpuscular Volume 88.1 fL (83.0-100.0); Mean Platelet Volume 10.4 fL (9.4-12.4); Monocytes # 0.4 K/mcL (0.0-1.3); Monocytes % 7.7 %; Platelet Count 145 K/mcL (140-400); Red Blood Count 2.68 M/mcL (4.19-5.50); Red Cell Distribution Width 13.6 % (11.5-14.5); Segmented Neutrophils % 54.1 %
[2017-07-17 04:52] LABS: Hemoglobin 7.9 g/dL (12.9-16.9)
[2017-07-17 04:56] LABS: BUN/Creatinine Ratio 18 (6-26); Calcium 7.5 mg/dL (8.6-10.8); Carbon Dioxide 21 mEq/L (19-29); Chloride 109 mEq/L (98-109); Glucose 120 mg/dL (70-99); Magnesium 1.7 mg/dL (1.6-2.6); Osmolality,Calculated 288 (280-300); Phosphorous 1.6 mg/dL (2.3-4.7); Potassium 4.2 mEq/L (3.5-4.5); Sodium 138 mEq/L (136-145); eGFR For African Americans > 60 (> 60); eGFR For Non-African Americans > 60 (> 60)
[2017-07-17 05:02] LABS: Blood Urea Nitrogen 14 mg/dL (8-26)
[2017-07-17] MEDS: *HR* Morphine 2 MG/ML SYRINGE IVP PRN ×2 (11:06→17:48)
[2017-07-17 12:39] LABS: Hematocrit 24.4 % (37.5-50.1); Hemoglobin 8.3 g/dL (12.9-16.9)
[2017-07-17] MEDS ORDERED: 0.9 % Sodium Chloride 1,000 ML IVC SCH (14:30)
[2017-07-17] MEDS ORDERED: *HR* Propofol 200 MG/20 ML VIAL IVP ONE (14:59)
--- NOTE | 2017-07-17 17:01 | Discharge Summary ---
<Cathryn Magaña - Last Filed: 07/17/17 16:59> Date of Encounter: 07/17/17 Time of Encounter: 16:59 - Discharge Diagnosis (1) Hematochezia Priority: Primary Status: Acute (2) Diverticular disease of large intestine Priority: Secondary Status: Chronic (3) Elevated troponin Priority: Secondary Status: Acute (4) Hypomagnesemia Priority: Secondary Status: Acute - Discharge Medications Prescriptions: Pantoprazole Sodium [Protonix] 40 mg PO DAILY #30 tablet. Home Medications: Aspirin [Lo-Dose Aspirin EC] 81 mg PO DAILY 07/15/17 [History] Atorvastatin [Lipitor] 40 mg PO HS 07/15/17 [History] Carvedilol [Coreg] 6.25 mg PO BID 07/15/17 [History] Oxycodone HCl/Acetaminophen [Percocet 10-325 mg Tablet] 1 tab PO QID 07/15/17 [ History] hydroCHLOROthiazide [Hydrochlorothiazide] 50 mg PO DAILY 07/15/17 [History] Pantoprazole Sodium [Protonix] 40 mg PO DAILY #30 tablet. 07/17/17 [Rx] Allergies/Adverse Reactions: 3 Allergy/AdvReac Type Severity Reaction Status Date / Time No Known Allergies Allergy Verified 07/15/17 12:15 Date of admission: 07/15/17 16:24 Primary care physician: Brody Steel Consults: 07/15/17 16:30 Consult to Gastroenterology [CONS] Routine Consulting Provider: Gastroenterology Wendy Reason for Consult: GI bleed ( spoke with Dr Sloan and He will be doing EGD tomorrow) Call Completed: Yes Discharging clinician: Cathryn Magaña Anticipated date of discharge: 07/17/17 - Patient Status Disposition: Home, Self-Care Condition: Good Functional capacity at discharge: independent ambulation Overall status at discharge: patient is progressing back to baseline - Discharge Instructions Follow Up With: Stefany Worrell [Other] - 07/26/17 11:30 am (This Dr. Pink PA) Additional Instructions: take all medications as prescribed please follow up with your primary care provider within one week of discharge please return to the emergency room if you if you develop further episodes of bleeding. - Diet and Activity Activity: increase activity as tolerated Diet: low fat, low cholesterol Hospital course: Mr. Barron is a 62 year old male with PMHx of HTN, HLD (hx of stent placed), bypass surgery, HTN. Patient arrived to [facility] on 07/15/17 with chief complaint of bright red blood per rectum since the prior evening. Also noticed black stools as well. Patient was admitted for further workup. CT abdomen/pelvis showed no acute abnormality, punctate nonobstructing right renal calculus, diverticulosis , diffuse bladder wall thickening. CXR showed no acute cardiopulmonary disease. Initial troponins were elevated at .04 but decreased eventually back to baseline. This was likely due to demand ischemia. GI was consulted for further intervention. EGD showed esophageal mucosal changes consistnet with short segment Barrets esophagus, gastritis, non bleeding erosive gastropathy, normal ampulla, duodenal bulb, and second portion of duodenum. Colonoscopy was negative for any source of bleed. Patient will be discharged home on oral protonix with follow up with PCP. patient's hemoglobin had decreased significantly during his hospitalization, she he will be transfused with one unit blood before going home. patient was stable throughout the course of his hospital stay and was discharged home in stable condition. Plan: take all medications as prescribed please follow up with your primary care provider within one week of discharge please return to the emergency room if you if you develop further episodes of bleeding. - Time Spent with Patient Total time spent providing and/or coordinating discharge services: - Constitutional Vitals: Temp Pulse Resp BP Pulse Ox 99.5 F 70 16 132/80 97 07/17/17 14:25 07/17/17 14:25 07/17/17 14:25 07/17/17 14:25 07/17/17 14:25 General appearance: Present: A&O X 3, morbidly obese, pleasant, no acute distress, answers questions appropriately - Head Head exam: Present: atraumatic, normocephalic - Neck Neck exam general surgery: Present: supple, trachea midline - Respiratory Respiratory exam: Present: CTAB - Cardiovascular Cardiovascular exam: Present: RRR, +S1, +S2 - GI/Abdominal GI/Abdominal exam: Present: normal bowel sounds, soft. Absent: distended, tenderness - Extremities Exam Extremities exam: Absent: cyanotic, pedal edema - Back Exam Back exam: Absent: CVA tenderness (L), CVA tenderness (R) - Neurological Exam Neurological exam: Present: alert, oriented X3, no focal deficits - Psychiatric Psychiatric exam: Present: normal affect, normal mood - Skin Skin exam: Present: intact <Jeison Jerez - Last Filed: 07/17/17 17:28> Date of Encounter: 07/17/17 - Discharge Diagnosis (1) Hematochezia Status: Acute (2) Coronary artery disease Priority: Secondary Status: Chronic Qualifiers: Coronary Disease-Associated Artery/Lesion type: [place] artery [place] vs. transplanted heart: [place] heart Associated angina: with stable angina Qualified Code(s): I25.118 - Atherosclerotic heart disease of [place] coronary artery with other forms of angina pectoris (3) Hypomagnesemia Status: Acute (4) Diverticular disease of large intestine Status: Chronic (5) Mcclendon esophagus Priority: Secondary Status: Chronic Qualifiers: Mcclendon's esophagus type: without dysplasia Qualified Code(s): K22.70 - Mcclendon's esophagus without dysplasia (6) Gastritis Priority: Secondary Status: Chronic Qualifiers: Gastritis type: other gastritis Chronicity: acute Gastritis bleeding: without bleeding Qualified Code(s): K29.00 - Acute gastritis without bleeding Date of admission: 07/15/17 16:24 Primary care physician: Brody Steel Consults: 07/15/17 16:30 Consult to Gastroenterology [CONS] Routine Consulting Provider: Gastroenterology Wendy Reason for Consult: GI bleed ( spoke with Dr Sloan and He will be doing EGD tomorrow) Call Completed: Yes Hospital course: Mr. Barron is a 62 year old male - Time Spent with Patient Total time spent providing and/or coordinating discharge services: 38min - Constitutional Vitals: Temp Pulse Resp BP Pulse Ox 99.5 F 70 16 132/80 97 07/17/17 14:25 07/17/17 14:25 07/17/17 14:25 07/17/17 14:25 07/17/17 14:25 - Attending Attestation I examined this patient and my medical decision-making was reviewed with the Resident Physician on 07/17/17. I agree with the documented findings, disposition and treatment plan as described except to the extent set forth below. Mr Barron has been admitted for acute GI bleed. He had EGD which showed Barretts esophagus and gastritis non bleeding. Colonoscopy reportedly negative. He is afebrile with stable vitals now. His H/H is low and he will receive another unit of blood. Following that he will be ready for discharge home and outpatient follow up. Exam Alert. Comfortable Mucus membranes dry Heart reg No wheeze or rhonchi Abd soft No edema Plan D/C home today.
[2017-07-17] MEDS ORDERED: 0.9 % Sodium Chloride 250 ML ONE (17:09)
[2017-07-17 21:37] VITALS: BP 115/72
== END 2017-07-17 22:43 | disposition home or self-care (01) | DRG 254 ==
LOC: 2NENU 09:40 → EMEROO 09:40 → 2NENU 15:39 → SUATTDRO 16:24 → 2NNU 19:32 → 3ANU 07-16 18:37
PROVIDERS: ADMIT Internal Medicine; ATTEND Internal Medicine